=== PATIENT | male | born 1975 | race Caucasian/White ===

== ENCOUNTER 2020-06-18 18:03 | Emergency (ER) | payer OTHER, SELFPAY ==
[2020-06-18 18:20] VITALS: BP 154/100; PULSE 90; RESP 16; TEMP 37.3; O2SAT 98
--- NOTE | 2020-06-18 18:32 | ED.WOUNDLAC ---
HPI - Wound/Laceration General Chief Complaint: Wound/Laceration Stated Complaint: possible spider bite Time Seen by Provider: 06/18/20 18:32 Source: patient and RN notes reviewed Mode of arrival: ambulatory Limitations: no limitations History of Present Illness HPI narrative: 45 year old male who preset to express care with complaints of possible spider bite to the inner aspect of his left wrist for the past 2 days which is getting worse.. Patient has acute inflamed area to the left inner wrist which measures 4.5cm X 2.5 cm with inner 1 cm dark scabbed center. The tissue is raised, warm and painful, no drainage from wound noted. Patient states that he has used peroxide and baking soda to cleanse wound. He states that his tetanus immunization is up to date. Onset (ago): day(s) (2) Location: other Extremity Location: Left: wrist Place: outdoors Patient tetanus UTD: Yes Context: other (abscess) Associated symptoms: pain Treatments prior to arrival: other (baking soa and peroxide.) Related Data Allergies Allergy/AdvReac Type Severity Reaction Status Date / Time No Known Allergies Allergy Unverified 04/13/15 15:04 Review of Systems Review of Systems: Narrative: CONSTITUTIONAL: Denies fever, chills, or sweats. EYES: Denies visual changes, redness, or discharge. ENT: Denies rhinorrhea, congestion, sore throat, or otalgia. CARDIOVASCULAR: Denies chest pain, palpitations, or edema. RESPIRATORY: Denies cough or dyspnea. GASTROINTESTINAL: Denies abdominal pain, nausea, vomiting, or diarrhea. GENITOURINARY: Denies dysuria or hematuria. SKIN: Denies rash or itching. red inflamed tissue to inner left wrist with 1 cm dark scabbed center. MUSCULOSKELETAL: Denies back pain, joint pain, or myalgia. NEUROLOGIC: Denies headache, numbness, or weakness. PSYCHIATRIC: Denies anxiety or depression. All systems reviewed & are unremarkable except as noted in HPI and below PMFSH Past Medical History Medical History (Updated 06/19/20 @ 00:00 by Barbara Marhs) Hypertension Surgical History Surgical History (Updated 06/21/20 @ 20:06 by Yaa Julian NP) No pertinent past surgical history Social History Social History (Updated 06/21/20 @ 20:06 by Yaa Julian NP) Smoking status: Current every day smoker Alcohol intake: unknown Substance use: never Living arrangements: with family Gender identity (if verbalized by the patient): Male Comments At time of signature, agree with nursing past medical, surgical, social history. There is no relevant family history pertinent to the presenting complaint Exam Narrative: Exam Narrative: GENERAL:Unkept -appearing, well-nourished, and in no acute distress. HEAD: Normocephalic, atraumatic. EYES: PERRLA and EOMI. ENT: Nares clear, no rhinorrhea or epistaxis. Mucous membranes moist. NECK: Supple. CHEST: Clear to auscultation. No respiratory distress.SAO2 98% on room air HEART: Regular rate and rhythm. No murmur heard. Normal peripheral pulses. ABDOMEN: Soft, nontender, nondistended, normal active bowel sounds. EXTREMITIES: Normal range of motion. No edema. SKIN: Warm, dry, no rash.4.5X2.5 red raised tissue to left inner wrist with 1cm inner dark scab, painful and warm to touch, no induration of tissue no drainage noted. NEURO: No focal deficits. Alert and oriented x3. Course Vital Signs Vital signs: Vital Signs Temperature 37.3 C 06/18/20 18:20 Pulse Rate 90 06/18/20 18:20 Respiratory Rate 16 06/18/20 18:20 Blood Pressure 154/100 H 06/18/20 18:20 Pulse Oximetry 98 06/18/20 18:20 Temperature 37.3 C 06/18/20 18:20 Pulse Rate 90 06/18/20 18:20 Respiratory Rate 16 06/18/20 18:20 Blood Pressure 154/100 H 06/18/20 18:20 Pulse Oximetry 98 06/18/20 18:20 MDM - Wound/Laceration Differential Diagnosis Differential diagnosis: Likely abscess and other (wound left inner wrist,pain left wrist) Medical Records Attestation: I reviewed the patient'
== END 2020-06-18 18:59 | disposition home or self-care (01) ==
PROVIDERS: Emergency Provider Registered Nurse
DX: L02.414 Cutaneous abscess of left upper limb (principal); F17.200 Nicotine dependence, unspecified, uncomplicated
CPT/HCPCS: 99213; G0463

== ENCOUNTER 2025-04-29 18:48 | Emergency (ER) | payer OTHER, SELFPAY ==
[2025-04-29 18:57] VITALS: BP 146/99; PULSE 77; RESP 16; TEMP 37; O2SAT 98
--- NOTE | 2025-04-29 19:08 | ED_ITS ---
HPI - General Adult General Chief complaint: Eye Problems Stated complaint: Left Eye Irritation Source: patient Mode of arrival: ambulatory Limitations: no limitations History of Present Illness HPI narrative: Pt is a 50 y/o male presenting with c/o L. eye irritation. Reports redness, drainage beginning yesterday. 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 He does not wear contact lenses. Denies work comp injury. No preceding URI sx. No additional complaints Related Data Allergies Allergy/AdvReac Type Severity Reaction Status Date / Time No Known Allergies Allergy Unverified 04/13/15 15:04 Review of Systems Review of Systems: CONSTITUTIONAL: Denies body aches, fever, chills, or sweats. EYES: Reports redness, drainage, pain L. eye. Denies visual loss ENT: Denies rhinorrhea, congestion, sore throat, or otalgia. CARDIOVASCULAR: Denies chest pain, palpitations, or edema. RESPIRATORY: Denies cough or dyspnea. GASTROINTESTINAL: Denies abdominal pain, nausea, vomiting, or diarrhea. GENITOURINARY: Denies dysuria or hematuria. SKIN: Denies rash, itching, or wounds. MUSCULOSKELETAL: Denies back pain, joint pain, or myalgia. NEUROLOGIC: Denies headache, numbness, tingling, or weakness. PSYCH: Denies depression or anxiety. All systems reviewed & are unremarkable except as noted in HPI and below PMFSH Past Medical History Medical History Hypertension Surgical History Surgical History No pertinent past surgical history Social History Social History Smoking status: Current every day smoker Alcohol intake: unknown Substance use: never Living arrangements: with family Gender identity (if verbalized by the patient): Male Exam Narrative: GENERAL: Well-appearing, well-nourished, and in no acute distress. HEAD: Normocephalic, atraumatic. EYES: EOMI. No redness or drainage. ENT: Mucous membranes pink and moist. Nares clear. No rhinorrhea. TMs normal bilaterally. Throat normal. Uvula midline. NECK: Normal AROM. Supple. CHEST: No respiratory distress. HEART: Regular rate EXTREMITIES: Normal range of motion. SKIN: Warm, dry, no rash. Capillary refill normal. Normal skin turgor. NEURO: No focal deficits. Alert and oriented x3. Gait steady. PSYCH: Normal affect. No signs of depression or anxiety. Eyes: Conjunctivae: conjunctival abnormality left conjunctival injection and discharge other (epiphora) Pupils: Equal, round and reactive pupils present EOM: EOMs intact bilaterally Direct Ophthalmoscopy: no photophobia and photophobia Other: round foreign body noted to L cornea, around 6 oclock. Course Course Emergency Course: Pt reports improvement in sx after eye irrigation Level of Care: Express Care Visit Vital Signs Vital signs: Vital Signs Temperature 98.6 F 04/29/25 18:57 Pulse Rate 77 04/29/25 18:57 Respiratory Rate 16 04/29/25 18:57 Blood Pressure 146/99 H 04/29/25 18:57 Pulse Oximetry 98 04/29/25 18:57 Oxygen Delivery Room Air 04/29/25 18:57 Temperature 98.6 F 04/29/25 18:57 Pulse Rate 77 04/29/25 18:57 Respiratory Rate 16 04/29/25 18:57 Blood Pressure 146/99 H 04/29/25 18:57 Pulse Oximetry 98 04/29/25 18:57 Oxygen Delivery Room Air 04/29/25 18:57 Procedures FB Removal Eye Foreign Body #1: Foreign Body Removal Date: 04/29/25 Foreign Body Removal Time: 20:11 Time Out performed: Yes Location: eye (L) Topical anesthetic used: tetracaine Foreign body: metal Evidence of corneal penetration: Yes (superficial) Technique: irrigation (500 cc NS) and NS Procedure performed under: direct visualization with magnification Post-procedure medication: ophthalmic antibiotic and other (PO norco) Patient tolerated procedure: well Complications: incomplete foreign body removal Medical Decision Making Vital Signs Vital Signs: Vital Signs Temperature 98.6 F 04/29/25 18:57 Pulse Rate 77 04/29/25 18:57 Respiratory Rate 16 04/29/25 18:57 Blood Pressure 146/99 H 04/29/25 18:57 Pulse Oximetry 98 04/29/25 18:57 Oxygen Delivery Room Air 04/29/25 18:57 Temperature 98.6 F 04/29/25 18:57 Pulse Rate 77 04/29/25 18:57 Respiratory Rate 16 04/29/25 18:57 Blood Pressure 146/99 H 04/29/25 18:57 Pulse Oximetry 98 04/29/25 18:57 Oxygen Delivery Room Air 04/29/25 18:57 Discharge Plan Discharge Clinical Impression: Corneal abrasion, Acute foreign body of cornea, HTN (hypertension) Patient Disposition: Home Condition: Stable Instructions: Antibiotic Form Additional Instructions: Follow-up with eye doctor 1st thing in the morning. Go straight to ER should your symptoms become worse or should any new symptoms develop Patient Language: Pakistani Prescriptions: New hydrocodone-acetaminophen 5-325 mg tablet 1 tablet PO Q8H PRN (Reason: pain) Qty: 10 0RF ofloxacin 0.3 % drops See Rx Instructions .ROUTE .COMPLEX Qty: 10 0RF Rx Instructions: put 1-2 drps into left eye every 2-4 h x 2 days, then 1-2 drps 4 times/day days 3-7 No Action cephalexin [Keflex] 500 mg capsule 500 mg PO Q8H Qty: 30 0RF mupirocin 2 % ointment 1 applic TOPICAL BID Qty: 30 0RF Follow-up/Referrals: PHYSICIAN,LOG MANAGER [Primary Care Provider] - 04/29/25 Time of Disposition: 20:19
[2025-04-29] MEDS: TETRACAINE HCL 0.5% OPHTH SOLN 4 ML BTL 1 DROP EACH EYE (19:56)
[2025-04-29] MEDS: FLUORESCEIN SOD 1 MG/STRIP EACH EYE (19:56)
== END 2025-04-29 20:30 | disposition home or self-care (01) ==
PROVIDERS: Emergency Provider Registered Nurse
DX: T15.02XA Foreign body in cornea, left eye, initial encounter (principal); I10 Essential (primary) hypertension; F17.200 Nicotine dependence, unspecified, uncomplicated
CPT/HCPCS: 99213; G0463